=== PATIENT | male | born 1975 | race Caucasian/White ===

== ENCOUNTER 2019-01-22 07:32 | Emergency (ER) | payer BC ==
[~2019-01-22] VITALS: Ht 172.7 cm; Wt 72.6 kg
[2019-01-22] MEDS ORDERED: KETOROLAC TROMETHAMINE 15 MG INJ ONE (07:57)
[2019-01-22] MEDS ORDERED: KETOROLAC TROMETHAMINE 15 MG INJ IVP ONE (08:00)
--- NOTE | 2019-01-22 08:01 | NUR ---
pt is in room #2b. dr Carbone evaluated the pt.
[2019-01-22] MEDS ORDERED: MORPHINE SULFATE 2 MG/1 ML DISP.SYRIN IV ONE (08:30)
[2019-01-22] MEDS ORDERED: ONDANSETRON 4 MG/2 ML VIAL IV ONE (08:30)
[2019-01-22] MEDS ORDERED: IV NORMAL SALINE 1000 ML BAG IV ONE (08:30)
[2019-01-22 08:46] LABS: *BILIRUBIN,URIN NEGATIVE (NEGATIVE); *CLARITY,URINE CLEAR (CLEAR); *COLOR,URINE YELLOW (YELLOW); *KETONES,URINE NEGATIVE (NEGATIVE); BASOPHILS % (AUTO) 0.4 % (0.0-2.0); EOSINOPHILS % (AUTO) 0.4 % (0.0-7.0); LEUKOCYTE ESTERASE ,URINE NEGATIVE (NEGATIVE); LYMPHOCYTES # (AUTO) 1.1 K/uL (20.0-40.0); LYMPHOCYTES % (AUTO) 13.9 % (20.5-51.5); MEAN CORPUSCULAR HEMOGLOBIN 27.3 uug (23.8-33.4); MEAN CORPUSCULAR HGB CONC 33 g/dL (32.5-36.3); MEAN CORPUSCULAR VOLUME 81.8 fL (73.0-96.2); MONOCYTES # (AUTO) 0.5 K/uL (2.0-10.0); MONOCYTES % (AUTO) 5.9 % (0.0-11.0); NEUTROPHILS # (AUTO) 6.5 K/uL (1.8-8.9); NEUTROPHILS % (AUTO) 79.4 % (38.5-71.5); NITRITE, URINE NEGATIVE (NEGATIVE); PLATELET COUNT (AUTO) 222 K/uL (152-348); RED BLOOD CELL COUNT(AUTO) 4.76 MIL/uL (4.06-5.63); UGLUCOSE NEGATIVE (NEGATIVE); WHITE BLOOD COUNT (AUTO) 8.2 K/uL (3.6-10.2)
[2019-01-22 08:50] LABS: CREATININE 1.1 mg/dL (0.6-1.3); POTASSIUM 3.9 mmol/L (3.5-5.1)
[2019-01-22 08:53] LABS: *BLOOD, URINE TRACE (NEGATIVE)
[2019-01-22 08:56] LABS: BILIRUBIN,DIRECT 0.1 mg/dL (0.0-0.2); BILIRUBIN,TOTAL 0.5 mg/dL (0.2-1.0); TOTAL PROTEIN, SERUM 7.6 g/dL (6.4-8.2)
[2019-01-22 08:57] LABS: BACTERIA,URINE FEW /HPF (NONE SEEN); RBC,URINE 0-3 /HPF (0-3); SQUAMOUS EPITHELIAL CELL,UR FEW /HPF (NONE SEEN); WBC,URINE 0-3 /HPF (0-3)
[2019-01-22] MEDS ORDERED: ONDANSETRON 4 MG/2 ML VIAL ONE (09:25)
[2019-01-22] MEDS ORDERED: MORPHINE SULFATE 4 MG/1 ML DISP.SYRIN ONE (09:25)
--- NOTE | 2019-01-22 10:07 | NUR ---
PT WAS D/C'd TO HOME. D/C INSTRUCTIONS GIVEN TO THE PT.
[2019-01-22 10:08] VITALS: BP 138/81
== END 2019-01-22 10:09 | disposition home or self-care (01) ==
LOC: ER 07:32
DX: N13.39 Other hydronephrosis (principal); N20.1 Calculus of ureter
CPT/HCPCS: 36415; 74176; 80048; 80076; 81000; 81001; 83690; 84484; 85025; 96361; 96374; 96375; 99284; J1885; J2270; J2405; 70030-TC; A4663; J7030

== ENCOUNTER 2019-05-30 09:53 | Emergency (ER) | payer BC ==
[~2019-05-30] VITALS: Ht 170.2 cm; Wt 79.4 kg
--- NOTE | 2019-05-30 10:19 | NUR ---
PT LEFT WITHOUT BEEN SEEN BY ER MD. PT STATED THAT HE HAS APPOINTMENT AND NEED TO LEAVE NOW.
== END 2019-05-30 10:20 | disposition left against medical advice (07) ==
LOC: ER 09:53
DX: R10.9 Unspecified abdominal pain (principal); Z53.21 Procedure and treatment not carried out due to patient leaving prior to being seen by health care provider
CPT/HCPCS: A4663